=== PATIENT | male | born 1945 ===

== ENCOUNTER → 2017-08-02 13:04 | Outpatient (CLI) | payer MEDICARE, OTHER ==
[~2017-08-02 13:04] MED LIST: BENADRYL50 MG PO; HYDROCODONE-APA1 TAB PO
[2017-08-26 06:55] VITALS: BMI 24.8
== END | disposition home or self-care (01) ==
LOC: D.MRI 13:00
DX: S83.261A Peripheral tear of lateral meniscus, current injury, right knee, initial encounter (principal)

== ENCOUNTER 2017-08-26 05:35 | Day surgery (SDC) | payer MEDICARE, OTHER ==
[2017-08-25 08:58] LABS: BASOPHILS 0.6 % (0-2); EOSINOPHILS 5.6 % (0-7); HEMATOCRIT 43.5 % (42.0-54.0); HEMOGLOBIN 14.8 g/dL (13.5-17.5); IMMATURE GRANULOCYTES 0.2 % (0-5); LYMPHOCYTES 33.3 % (15-50); MCV 91.2 fL (80.0-100.0); MEAN PLATELET VOLUME 9.8 fL (7.4-10.4); MONOCYTES 12.5 % (2-11); NEUTROPHILS 47.8 % (40-80); PLATELET COUNT 246 10x3/uL (130-400); RBC 4.77 10x6/uL (4.20-6.10); RDW 12.3 % (11.5-14.5); WBC 4.6 10x3/uL (4.8-10.8)
[2017-08-25 09:11] LABS: APTT 23.9 SECONDS (22.8-39.4); INR 0.94 (0.85-1.17); PROTIME 12.2 SECONDS (11.6-15.0)
[~2017-08-26] VITALS: Ht 170.2 cm; Wt 68.9 kg
--- NOTE | ~2017-08-26 | OP ---
PATIENT NAME: JEMMA HARDEN MEDICAL RECORD: [id number] :43 LOCATION:D.OPS ADMISSION DATE: SURGEON: TERRENCE MOMIN MD DATE OF OPERATION: 08/26/2017 PREOPERATIVE DIAGNOSES: 1. Medial meniscus tear of the right knee. 2. Lateral meniscus tear of the right knee. POSTOPERATIVE DIAGNOSES: 1. Medial meniscus tear of the right knee. 2. Lateral meniscus tear of the right knee. PROCEDURES: 1. Arthroscopic partial medial meniscectomy. 2. Arthroscopic partial lateral meniscectomy. SURGEON: Terrence Momin MD ANESTHESIA: General. INTRAOPERATIVE COMPLICATIONS: None. SUMMARY OF PATHOLOGIC FINDINGS: Unfortunately, the medial meniscus tear and the lateral meniscus tear had caused some areas of chondromalacia, although no greater than grade II and one punctate spot of grade III in the lateral compartment, otherwise his knee was in overall good condition. OPERATIVE SUMMARY IN DETAIL: After obtaining the appropriate preoperative orthopedic surgery consent as well as anesthetic consultation, evaluation and clearance, the patient was brought to the operating room and placed on the operating table in supine position. After adequate general laryngeal mask airway was administered, tourniquet was placed about the proximal aspect of the right lower extremity. Right lower extremity was then prepped and draped in routine sterile fashion. Leg was elevated and exsanguinated. Tourniquet was inflated to 350 mmHg. Routine inferolateral portal was established, followed by superior medial portal and inferior medial portal. Diagnostic arthroscopy did reveal the above findings. Attention was first turned to the medial meniscus. Combination of arthroscopic resector as well as a meniscotome were utilized to debride the meniscus medially back to stable meniscal elements with substantial residual meniscus noted. There was a small area of chondromalacia on the medial side juxtaposed to the tear, that is the medial side of the medial femoral condyle. Next, the leg was put in a fafirj-uy-udlu position and the large tearing of the lateral meniscus was noted. Serial and sequential takedown with both meniscotomes as well as an arthroscopic shaver were utilized to debride the lateral meniscus back to stable lateral constructs. Again, a small area of chondromalacia was seen on the lateral femoral condyle. After having completed this, the knee was insufflated with 30 cc of 0.25% Marcaine with epinephrine and 80 mg of Depo-Medrol. Arthroscopy portals were closed in routine interrupted fashion using 4-0 Prolene. Sterile dressings were applied. The patient was awakened and taken to recovery room in stable condition. All final needle and sponge counts were correct. TRANSINT:[id number] Voice Confirmation ID: [id number] DOCUMENT ID: [id number] OPERATIVE REPORT [id number] JEMMA HARDEN MD, TERRENCE HIGGINBOTHAM at 1346 CC: [id number] DICTATION DATE: 08/26/17 0951 MEDICAID BUSINESS ANALYST: 08/26/[address] [facility] [place] 08/26/17 [id number] [place] [address]
[~2017-08-26 05:35] MED LIST changes: -HYDROCODONE-APA1 TAB PO
[2017-08-26 06:55] VITALS: BP 117/72; Ht 170.2 cm; Wt 68.9 kg
[2017-08-26] MEDS ORDERED: HYDROCODONE-APA1 TAB PO (09:48)
== END 2017-08-26 11:31 | disposition home or self-care (01) ==
LOC: D.OPS 05:35 → D.PAN 10:45 → D.OPS 11:00 → D.PAN 11:00 → D.OPS 11:31
PROVIDERS: Anesthesiology
DX: S83.261A Peripheral tear of lateral meniscus, current injury, right knee, initial encounter (principal); S83.221A Peripheral tear of medial meniscus, current injury, right knee, initial encounter; M25.561 Pain in right knee; Z01.812 Encounter for preprocedural laboratory examination

== ENCOUNTER → 2018-09-07 06:30 | Outpatient (CLI) | payer MEDICARE, OTHER ==
[2017-08-26 06:55] VITALS: BMI 24.8
[~2018-09-07 06:30] MED LIST changes: +HYDROCODONE-APA1 TAB PO
== END | disposition home or self-care (01) ==
LOC: D.MRI 06:30
DX: M75.121 Complete rotator cuff tear or rupture of right shoulder, not specified as traumatic (principal); X58.XXXA Exposure to other specified factors, initial encounter

== ENCOUNTER 2018-10-13 05:30 | Day surgery (SDC) | payer MEDICARE, OTHER ==
[2018-10-12 10:06] LABS: BASOPHILS 0.8 % (0-2); EOSINOPHILS 4.1 % (0-7); HEMATOCRIT 43.5 % (42.0-54.0); HEMOGLOBIN 14.7 g/dL (13.5-17.5); IMMATURE GRANULOCYTES 0.2 % (0-5); LYMPHOCYTES 33.2 % (15-50); MCH 30.9 pg (26.0-34.0); MCHC 33.8 g/dL (31.0-37.0); MCV 91.4 fL (80.0-100.0); MONOCYTES 9.2 % (2-11); NEUTROPHILS 52.5 % (40-80); PLATELET COUNT 205 10x3/uL (130-400); RBC 4.76 10x6/uL (4.20-6.10); RDW 12.6 % (11.5-14.5); WBC 4.9 10x3/uL (4.8-10.8)
[2018-10-12 10:17] LABS: APTT 25.1 SECONDS (22.8-39.4); INR 0.97 (0.85-1.17); PROTIME 12.4 SECONDS (11.6-15.0)
[~2018-10-13] VITALS: Ht 170.2 cm; Wt 72.6 kg
[~2018-10-13 05:30] MED LIST changes: +LEXAPRO10 MG PO
[2018-10-13 06:21] VITALS: BP 124/70; Ht 170.2 cm; Wt 72.6 kg
[2018-10-13] MEDS ORDERED: HYDROCODON-ACE1 EA10 PO (08:58)
--- NOTE | 2018-10-13 10:35 | NUR ---
1015 PT VOIDED WITHOUT DIFFICULTY 1019 IV DC'D. NO BLEEDING AT SITE. BANDAID APPLIED.
--- NOTE | 2018-10-13 13:09 | OP ---
PATIENT NAME: JEMMA HARDEN MEDICAL RECORD: [id number] :43 LOCATION:[facility] ADMISSION DATE: SURGEON: MERRILL KNIGHT, TERRENCE HIGGINBOTHAM DATE OF OPERATION: 10/13/2018 PREOPERATIVE DIAGNOSES: 1. Rotator cuff tear of the right shoulder -- subscapularis tear. 2. Biceps tendon subluxation with tendinitis, right shoulder. 3. Impingement syndrome. 4. Acromioclavicular arthritis. PROCEDURES: 1. Arthroscopic rotator cuff repair, right shoulder. 2. Arthroscopic biceps tenodesis of the right shoulder. 3. Arthroscopic distal clavicle excision done through separate incision, 1 cm. 4. Arthroscopic subacromial decompression, acromioplasty and bursectomy. SURGEON: Terrence Momin MD ANESTHESIA: General. INTRAOPERATIVE COMPLICATIONS: None. SUMMARY OF PATHOLOGIC FINDINGS: Consistent with preoperative diagnosis. The patient had a biceps tendon that was partially torn and subluxed anterior with a tear into the subscapularis requiring a subscapularis repair into the supraspinatus as well as biceps tenodesis. This was done quite nicely arthroscopically using [employer] SwiveLock. OPERATIVE SUMMARY IN DETAIL: After obtaining the appropriate preoperative orthopedic surgery consent as well as anesthetic consultation, evaluation, and clearance, the patient was brought to the operating room and placed on the operating table in supine position. After general laryngeal mask airway was administered, the patient was placed in left lateral decubitus position. All pressure points were well padded to include down leg peroneal pad as well as axillary roll. The patient was well held firmly to the operating table using the vacuum pack suction system. Right upper extremity and shoulder were then prepped and draped in routine sterile fashion. The arm was held in the Arthrex traction boom at 30 degrees of forward flexion, 30 degrees of abduction, 10 pounds of traction laterally. Arthroscopy was established in the glenohumeral joint from the posterior portal. Anterior portal was established in the anterior safe interval. Diagnostic arthroscopy did show the above findings. Attention was first turned to debridement of the torn labrum. The labrum was torn. At this point, the subscapularis and anterior portion of the supraspinatus tendinous footprints were decorticated in preparation for reapproximation. A FiberWire was then placed through the biceps tendon, which was then tenotomized. A drill hole was created for a size 8 biceps tenotomy screw and size 8 biceps tenotomy screw was deployed and the biceps tendon seated nicely for a tenodesis. Having completed this, attention was turned to the subacromial space. While in the subacromial space, Holbrook tissue ablation system was utilized to denude the undersurface of the acromion of all soft tissue elements and to release the coracoacromial ligament. A 5-0 barrel bur was then used to perform acromioplasty at the level of the acromioclavicular joint. Next, attention was turned to the AC joint itself. Through a separate anterior arthroscopic portal and direct arthroscopic visualization, distal OPERATIVE REPORT [id number] JEMMA HARDEN clavicle was excised. Having completed this, the tails of the tenodesis screw were used to grab the anterior inferior corner of the subscapularis and reapproximated back up into its usual position on the lesser tuberosity. This was anchored with a 5.5 SwiveLock from Arth[employer] and again the tails from the 5.5 SwiveLock from [employer] were advanced posteriorly and used to bring around the superior aspect of the subscapularis and this was anchored again with a 5.5 SwiveLock from [employer]. Lastly, the posterior portion of the supraspinatus tendon tear was treated with an inverted mattress FiberTape, which was anchored with a 4.75 SwiveLock from [employer]. Having completed this, arthroscopy portals were closed in routine interrupted fashion using 4-0 Prolene. Sterile dressings were applied. The patient was awakened and taken to the recovery room in stable condition. All final needle and sponge counts were correct. TRANSINT:[id number] Voice Confirmation ID: [id number] DOCUMENT ID: [id number] MERRILL KNIGHT, TERRENCE HIGGINBOTHAM at 1309 CC: [id number] DICTATION DATE: 10/13/18913 MEDIA RELATIONS MANAGER: 10/13/18 1108 [facility] 10/13/18 [facility] [address] [id number]
== END 2018-10-13 11:00 | disposition home or self-care (01) ==
LOC: D.OPS 05:30 → D.PAN 07:30 → D.OPS 11:00
PROVIDERS: Anesthesiology; ATTEND Orthopaedic Surgery
DX: M75.111 Incomplete rotator cuff tear or rupture of right shoulder, not specified as traumatic (principal); S43.081A Other subluxation of right shoulder joint, initial encounter; M75.41 Impingement syndrome of right shoulder; M13.811 Other specified arthritis, right shoulder; Z01.812 Encounter for preprocedural laboratory examination

== ENCOUNTER 2020-05-27 11:32 | Emergency (ER) | payer MEDICARE, OTHER ==
[~2020-05-27] VITALS: Ht 170.2 cm; Wt 79.5 kg
[~2020-05-27 11:32] MED LIST changes: +HYDROCODON-ACE1 EA10 PO
[2020-05-27 11:48] VITALS: BP 112/66; Ht 170.2 cm; Wt 79.5 kg
[2020-05-27] MEDS ORDERED: KEFLEX500 MG PO (12:46)
== END 2020-05-27 13:57 | disposition home or self-care (01) ==
LOC: D.ER 11:32
DX: S61.012A Laceration without foreign body of left thumb without damage to nail, initial encounter (principal); W26.9XXA Contact with unspecified sharp object(s), initial encounter